=== PATIENT | female | born 1995 | race Two or more races ===

== ENCOUNTER 2021-05-20 18:30 | Emergency (ER) | payer OTHER ==
[~2021-05-20] VITALS: Ht 162.6 cm; Wt 59.0 kg
== END 2021-05-21 13:33 | disposition home or self-care (01) ==
LOC: ER 18:30
DX: K52.9 Noninfective gastroenteritis and colitis, unspecified (principal); Z03.818 Encounter for observation for suspected exposure to other biological agents ruled out; R10.9 Unspecified abdominal pain; R19.7 Diarrhea, unspecified

== ENCOUNTER 2024-01-13 09:56 | Emergency (ER) | payer OTHER ==
[~2024-01-13] VITALS: Ht 160 cm; Wt 62.1 kg
[2024-01-13] MEDS ORDERED: MEPERIDINE HCL 25 MG/ML AMPUL IV ONE (11:00)
[2024-01-13] MEDS ORDERED: PROMETHAZINE HCL 25 MG/ML AMPUL IM ONE (11:00)
[2024-01-13] MEDS ORDERED: 0.9 % SODIUM CHLORIDE 1,000 ML IV SCH (11:00)
[2024-01-13 11:38] LABS: HEMATOCRIT 41.8 % (36.0-45.00); HEMOGLOBIN 14.9 g/dL (12.0-15.00); MEAN CELL VOLUME 84.3 fL (80.00-100.00); MEAN CORPUSCULAR HGB CONC 35.6 g/dl (32.0-36.0); PLATELET COUNT 245 K/uL (150-450); RED BLOOD COUNT 4.96 M/uL (4.00-6.00); RED CELL DISTRIBUTION WIDTH 13.4 % (11.5-14.5)
[2024-01-13 11:41] LABS: URINE APPEARANCE Turbid; URINE BILIRRUBIN Negative (NEGATIVE); URINE BLOOD Negative; URINE COLOR Yellow; URINE GLUCOSE Negative (NEGATIVE); URINE LEUKOCYTE Negative; URINE NITRATE Negative; URINE PROTEIN Negative (NEGATIVE); URINE UROBILINOGEN 0.2 E.U./dl
[2024-01-13 11:46] LABS: URINE BACTERIA 1191.8 uL (0.0-1933); URINE EPITHELIAL CELLS 3.5 uL (0.0-38.8); URINE RBC 16.9 uL (0.0-20.8); URINE WBC 4.6 uL (0.0-23.2)
[2024-01-13 12:26] LABS: CALCIUM 9.9 mg/dL (8.5-10.1); CREATININE SERUM 0.58 mg/dL (0.55-1.02); GFR 124.7; POTASSIUM 3.49 mEq/L (3.5-5.1)
[2024-01-13] MEDS ORDERED: ACETAMINOPHEN 500 MG GEL..CAP PO ONE (15:15)
== END 2024-01-13 17:54 | disposition home or self-care (01) ==
LOC: ER 09:56
PROVIDERS: Emergency Medicine
DX: O21.8 Other vomiting complicating pregnancy (principal); R51.9 Headache, unspecified; Z3A.09 9 weeks gestation of pregnancy

== ENCOUNTER 2024-05-24 10:43 | Outpatient (CLI) | payer OTHER | END 2024-05-24 10:44 | disposition home or self-care (01) | LOC: PRENATAL 10:43 | PROVIDERS: ATTEND Obstetrics & Gynecology Maternal & Fetal Medicine | DX: O26.843 Uterine size-date discrepancy, third trimester (principal); O44.03 Complete placenta previa NOS or without hemorrhage, third trimester; Z3A.28 28 weeks gestation of pregnancy ==

== ENCOUNTER 2024-07-05 14:25 | Outpatient (CLI) | payer OTHER | END 2024-07-05 14:26 | disposition home or self-care (01) | LOC: PRENATAL 14:25 | PROVIDERS: ATTEND Obstetrics & Gynecology Maternal & Fetal Medicine | DX: O26.849 Uterine size-date discrepancy, unspecified trimester (principal); O36.8199 Decreased fetal movements, unspecified trimester, other fetus; Z3A.34 34 weeks gestation of pregnancy ==

== ENCOUNTER 2024-08-03 23:42 | Inpatient (IN) | payer OTHER ==
[2024-08-02 13:01] LABS: HEMATOCRIT 38.3 % (36.0-45.00); HEMOGLOBIN 13.6 g/dL (12.0-15.00); MEAN CELL VOLUME 87.1 fL (80.00-100.00); MEAN CORPUSCULAR HEMOGLOBIN 30.9 pg (27.00-32.0); MEAN CORPUSCULAR HGB CONC 35.4 g/dl (32.0-36.0); PLATELET COUNT 146 K/uL (150-450); RED CELL DISTRIBUTION WIDTH 14.6 % (11.5-14.5)
[2024-08-02 13:24] LABS: INR < 0.93; PARTIAL THROMBOPLASTIN TIME 28.7 SECONDS (22.0-34.0)
[2024-08-02 13:28] LABS: ALBUMIN 3.3 gm/dL (3.4-5.0); BILIRUBIN TOTAL 0.6 mg/dL (0.3-1.2); CALCIUM 8.8 mg/dL (8.5-10.1); CREATININE SERUM 0.47 mg/dL (0.55-1.02); GFR 158.95; GLOBULINA 3.3 G/DL (2.4-3.5); POTASSIUM 3.91 mEq/L (3.5-5.1); TOTAL PROTEIN 6.6 gm/dL (6.4-8.2)
[~2024-08-03] VITALS: Ht 160 cm; Wt 78.5 kg
[2024-08-03 23:25] VITALS: BP 121/88
[2024-08-03] MEDS ORDERED: AMPICILLIN SODIUM 2,000 MG VIAL IV ONE (23:45)
[2024-08-03] MEDS ORDERED: RINGERS SOLUTION,LACTATED 1,000 ML IV SCH (23:45)
[2024-08-03] MEDS ORDERED: PRENATAL TABLE1 EAC1 (23:52)
[2024-08-04] VITALS (7 sets, daily range): BP systolic 112–143; BP diastolic 75–93
[2024-08-04] MEDS ORDERED: AMPICILLIN SODIUM 1,000 MG VIAL IV SCH (04:00)
[2024-08-04] MEDS ORDERED: OXYTOCIN 500 ML IV SCH (04:15)
[2024-08-04] MEDS ORDERED: CHLORHEXIDINE GLUCONATE 120 ML BOTTLE TP SCH (08:30)
[2024-08-04] MEDS ORDERED: OXYTOCIN 1,000 ML IV SCH (08:30)
[2024-08-04] MEDS ORDERED: IBUprofen 800 MG TABLET PO SCH (09:00)
[2024-08-04] MEDS ORDERED: DOCUSATE SODIUM 100MG CAP PO SCH (09:00)
[2024-08-04 20:02] LABS: HEMATOCRIT 32.1 % (36.0-45.00); HEMOGLOBIN 11.3 g/dL (12.0-15.00); MEAN CELL VOLUME 88.4 fL (80.00-100.00); MEAN CORPUSCULAR HEMOGLOBIN 31.2 pg (27.00-32.0); MEAN CORPUSCULAR HGB CONC 35.2 g/dl (32.0-36.0); PLATELET COUNT 141 K/uL (150-450); RED BLOOD COUNT 3.63 M/uL (4.00-6.00); RED CELL DISTRIBUTION WIDTH 14.5 % (11.5-14.5)
[2024-08-05 00:42] VITALS: BP 111/70
[2024-08-05 08:00] VITALS: BP 118/82
[2024-08-05 15:10] VITALS: BP 124/85
[2024-08-06] VITALS: BP 118/61
[2024-08-06 08:36] VITALS: BP 132/90
[2024-08-06 14:42] VITALS: BP 114/74
== END 2024-08-06 17:54 | disposition home or self-care (01) | DRG 807 ==
LOC: LDR 23:42 → OB/GYN 23:42 → LDR 08-07 11:55
PROVIDERS: ADMIT Obstetrics & Gynecology; ATTEND Obstetrics & Gynecology
PROC: 4A1HXCZ Monitoring of Products of Conception, Cardiac Rate, External Approach (ICD-10-PCS; 2024-08-03)
PROC: 10E0XZZ Delivery of Products of Conception, External Approach (ICD-10-PCS; principal; 2024-08-04)
DX: O99.824 Streptococcus B carrier state complicating childbirth (principal); Z37.0 Single live birth; Z3A.38 38 weeks gestation of pregnancy; Z20.822 Contact with and (suspected) exposure to COVID-19